=== PATIENT | female | born 1925 | race Caucasian/White ===

== ENCOUNTER 2017-02-07 22:30 | Emergency (ER) | payer MEDICARE, OTHER ==
[2017-02-07] MEDS ORDERED: Morphine INJ* 2 MG/ML 1 ML SYRINGE IV ONE (22:34)
--- NOTE | 2017-02-07 22:49 | ED ---
I, Russel,Aden, scribed for Jaziel Youssef MD on 02/07/17 at 2242 . 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 Fall was unwitnessed, and pt pressed life alert before being brought in by ambulance. Pt is reported to have been hypertensive at time of initial encounter. Fentanyl IM by EMS PENSION EXAMINER. She is noted loudly moaning at time of ED arrival, and poorly tolerated being moved to stretcher in room. PMHx includes DM and HTN. PSHx includes bilat knee and hip replacement. - History of Current Complaint Stated Complaint: LT HIP/LEG PAIN Time Seen by Provider: 02/07/17 22:31 Hx Obtained From: Patient, Medical Records Mechanism Of Injury: Fall From A Standing Position Onset of Pain: Immediate Timing: Constant Location: Is Discrete @ - left hip Character Of Pain: Sharp Associated Signs And Symptoms: Positive: Negative Aggravating Factor(s): Standing, Ambulation, Movement Alleviating Factor(s): Rest Able to Bear Weight: No - Allergies/Home Medications Allergies/Adverse Reactions: Allergies Allergy/AdvReac Type Severity Reaction Status Date / Time Dipyridamole [From Aggrenox] Allergy Unknown Verified 04/27/14 06:31 Reaction Details Hydrocodone Allergy Abdominal Verified 04/27/14 06:31 Pain Lactose Intolerance (GI) Allergy Unknown Verified 04/27/14 06:31 Reaction Details Penicillins [PCN] Allergy Unknown Verified 04/27/14 06:31 Reaction Details Phenylbutazone Allergy Unknown Verified 04/27/14 06:31 [From Butazolidin] Reaction Details Sulfa Antibiotics Allergy GI Upset Verified 04/27/14 06:31 ENVIRONMENT Allergy Unknown Uncoded 04/27/14 06:31 Reaction Details PMH/Surg Hx/FS Hx/Imm Hx Endocrine/Hematology History: Reports: Hx Diabetes - TYPE 2 Denies: Hx Anticoagulant Therapy, Hx Blood Disorders, Hx Bone Marrow Disease , Hx Systemic Lupus Erythematosus, Hx Sickle Cell Disease, Hx Thyroid Disease, Hx Anemia, Hx Unexplained Bleeding Cardiovascular History: Reports: Hx Coronary Artery Disease - CHOLESTEROL CONTROL WITH MEDS, Hx Hypertension - ON MEDS, Hx Valvular Heart Disease Denies: Hx Angina, Hx Cardiomegaly, Hx Congestive Heart Failure, Hx Pacemaker /ICD, Hx Peripheral Vascular Disease, Hx Rheumatic Fever, Other Cardiovascular Problems/Disorders Respiratory History: Reports: Hx Seasonal Allergies Denies: Hx Asthma, Hx Pulmonary Edema, Hx Pulmonary Embolism GI History: Reports: Hx Gastroesophageal Reflux Disease Denies: Hx Cirrhosis, Hx Crohn's Disease, Hx Diverticulosis, Hx Gall Bladder Disease, Hx Gastrointestinal Bleed, Hx Hiatal Hernia, Hx Irritable Bowel, Hx Jaundice, Hx Obstructive Bowel, Hx Ileostomy, Hx Ulcer, Other GI Disorders History: Denies: Hx Acute Renal Failure, Hx Benign Prostatic Hyperplasia, Hx Chronic Renal Failure, Hx Dialysis, Hx Kidney Infection, Hx Kidney Stones Musculoskeletal History: Reports: Hx Arthritis, Other Musculoskeletal History Denies: Hx Bursitis Sensory History: Reports: Hx Contacts or Glasses, Hx Glaucoma Denies: Hx Cataracts, Hx Eye Injury, Hx Eye Prosthesis, Hx Legally Blind, Hx Macular Degeneration, Hx Vision Problem, Hx Deafness, Hx Hearing Aid, Hx Hearing Problem, Other Sensory Impairments Opthamlomology History: Reports: Hx Contacts or Glasses, Hx Glaucoma Denies: Hx Cataracts, Hx Eye Injury, Hx Eye Prosthesis, Hx Legally Blind, Hx Macular Degeneration, Hx Vision Problem, Other Sensory Impairments Neurological History: Reports: Hx Transient Ischemic Attacks (TIA) Denies: Hx Dementia, Hx Developmental Delay, Hx Headaches, Hx Migraine, Hx Nerve Disease, Hx Seizures, Hx Spinal Cord Injury, Other Neuro Impairments/ Disorders Psychiatric History: Denies: Hx Anxiety, Hx Attention Deficit Hyperactivity Disorder, Hx Eating Disorder, Hx Depression, Hx Panic Disorder, Hx Post Traumatic Stress Disorder, Hx Inpatient Treatment, Hx Community Mental Health Tx, Hx Schizophrenia, Hx Bipolar Disorder, Hx Suicide Attempt, Hx of Violent Episodes Against Others, Hx Substance Abuse, Other Psychiatric Issues/Disorders - Cancer History Hx Chemotherapy: No Hx Radiation Therapy: No Hx Palliative Cancer Treatment: No - Surgical History Surgery Procedure, Year, and Place: TONSILLECTOMY, AGE 6. APPENDECTOMY, 1952. BILATERAL KNEE REPLACEMENT, 1999, 2002. BILATERAL HIP REPLACEMENT, 2010. CARPAL TUNNEL RELEASE LEFT WRIST, Hx Anesthesia Reactions: No Infectious Disease History: Denies: Hx Clostridium Difficile, Hx Hepatitis - Family History Known Family History: Negative: Other - breast CA - Social History Lives: Alone Alcohol Use: Rare Hx Substance Use: No Substance Use Type: Reports: None Hx Tobacco Use: No Smoking Status (MU): Never Smoked Tobacco Have You Smoked in the Last Year: No Review of Systems Negative: Fever Positive: Other - left hip pain s/p fall All Other Systems Reviewed And Are Negative: Yes Physical Exam Triage Information Reviewed: Yes Vital Signs Reviewed: Yes Appearance: Positive: Well-Appearing, Pain Distress - moderate pain Skin: Positive: Warm Head/Face: Positive: Normal Head/Face Inspection Eyes: Positive: LEIDY ENT: Positive: Hearing grossly normal Neck: Positive: Supple Respiratory/Lung Sounds: Positive: Clear to Auscultation, Breath Sounds Present Cardiovascular: Positive: RRR Abdomen Description: Positive: Nontender, Soft Bowel Sounds: Positive: Present Musculoskeletal: Positive: Other - obvious lt hip/femur deformity, pulses 2+ distally Neurological: Positive: Alert, Oriented to Person Place, Time, NV Bundle Intact Distally Psychiatric: Positive: Affect/Mood Appropriate Diagnostics - Laboratory Result Diagrams: 02/07/17 22:50 02/07/17 22:50 Lab Statement: Any lab studies that have been ordered have been reviewed, and results considered in the medical decision making process. - Radiology CXR Xray Interpretation: No Acute Changes Radiology Interpretation Completed By: ED Physician Left femur Xray Interpretation: Positive (See Comments) - Positive femur fracture Radiology Interpretation Completed By: ED Physician Left hip Xray Interpretation: Positive (See Comments) - Positive femure fracture Radiology Interpretation Completed By: ED Physician - EKG 2349 Cardiac Rate: NL - 67 bpm EKG Rhythm: Sinus Rhythm Re-Evaluation - Re-Evaluation First Eval Re-Evaluation Time: 23:31 Comment: MD in room to update pt on X-ray imaging results. Plan of care involving ortho consult and admission is discussed with pt and family member present at bedside. Lower Extremity Course/Dx - Course Course Of Treatment: Consultation: Dr. Velazquez (Hospitalist) at 2234 PM -- made aware of possible hip fracture. Dr. Pena (Ortho) at 2333 PM -- recommends transfer. Dr. Zuluaga ([facility], Accepting physician) at 2341 PM. 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 Pt lives alone, and pressed life alert button before EMS transfer. She is seen moaning loudly and tolerating transfer from stretcher to ED bed poorly. X-ray indicates marked paraprosthetic fracture and mid shaft femur fracture of LLE. CXR is normal. Dr. Delarosa, corrections lieutenant ortho, who recommends transfer. Transfer center was called and pt is accepted for transfer with Dr. Zuluaga as accepting physician. - Diagnoses Provider Diagnoses: mid shaft femur fracture, left, paraprosthetic fracture, left femure, Left hip pain - Physician Notifications Discussed Care Of Patient With: Stone Velazquez Time Discussed With Above Provider: 22:34 Instructed by Provider To: Transfer - to [facility] Discharge - Discharge Plan Condition: Fair Disposition: TRANS HIGHER LVL OF CARE FAC Referrals: Rancho Holt MD [Primary Care Provider] - The documentation as recorded by the Russel deleon Soohyun accurately reflects the service I personally performed and the decisions made by me, Jaziel Youssef MD.
[2017-02-07 23:01] LABS: Hematocrit 39 % (35-47); Hemoglobin 12.7 g/dl (12.0-16.0); Mean Corpuscular HGB Conc 33 g/dl (31-36); Mean Corpuscular Hemoglobin 30 pg (27-31); Mean Corpuscular Volume 91 fL (80-97); Mean Platelet Volume 9 um3 (7.4-10.4); Red Blood Count 4.27 10^6/ul (4.0-5.4); Red Cell Distribution Width 15 % (10.5-15); White Blood Count 5.4 10^3/ul (3.5-10.8)
[2017-02-07 23:13] LABS: Albumin 3.9 g/dL (3.2-5.2); BUN/Creatinine Ratio 20.7 (8-20); C Reactive Protein 6.25 mg/L (< 5.00); Calcium 8.9 mg/dL (8.6-10.3); EGFR African American 84.4 (>60); EGFR Non-African American 65.6 (>60); Globulin 2.7 g/dL (2-4); Potassium 4.1 mmol/L (3.5-5.0); Total Bilirubin 0.5 mg/dL (0.2-1.0); Total Protein 6.6 g/dL (6.4-8.9)
[2017-02-07] MEDS ORDERED: Morphine INJ* 4 MG/ML 1 ML SYRINGE IV ONE (23:27)
[2017-02-08 00:44] VITALS: BP 154/57
--- NOTE | 2017-02-08 08:59 | RAD ---
Indication: Left hip pain. 2 views of left hip and an AP view of the pelvis demonstrates no fracture. Left hip replacement in satisfactory position. Pelvic ring is intact. There is a fracture of the proximal femur just distal to the prosthesis on the left. Lateral angulation is noted. IMPRESSION: Left hip replacement in satisfactory position. Spiral fracture of the proximal diaphysis of the left femur with lateral angulation.
--- NOTE | 2017-02-08 09:03 | RAD ---
Indication: Fall, preop chest. Comparison is made with previous exam dated September 15, 2006 January 26, 2015. Single view of the chest demonstrates no mediastinal shift. Mild cardiomegaly is noted. No pneumothorax is noted. Interstitial prominence which may represent mild vascular congestion is noted. Question of a nodule in the left midlung Field is noted. This was present on prior exam. This likely represents calcified granuloma. IMPRESSION: Evidence of mild vascular congestion. The patient has had aortic stent presumably from aortic valve replacement.
--- NOTE | 2017-02-08 09:06 | RAD ---
Indication: Fall. Left thigh injury. 6 views of the left femur are reviewed. There is a spiral fracture of the midshaft of the left femur. There is lateral angulation noted. Butterfly fragment is noted. Periprosthetic fracture is noted surrounding the femoral component of the knee replacement. IMPRESSION: Comminuted spiral fracture of the midshaft of the left femur with lateral displacement and angulation. Periprosthetic fracture around the femoral component of the knee prosthesis is also present.
== END 2017-02-08 00:44 | disposition short-term general hospital (02) ==
LOC: ED 22:30
DX: S72.302A Unspecified fracture of shaft of left femur, initial encounter for closed fracture (principal); M25.552 Pain in left hip; M97.02XA Periprosthetic fracture around internal prosthetic left hip joint, initial encounter; W19.XXXA Unspecified fall, initial encounter; Y93.9 Activity, unspecified; Y92.89 Other specified places as the place of occurrence of the external cause
CPT/HCPCS: 36415; 71010; 80053; 83605; 85025; 85610; 86140; 86850; 86900; 86901; 93005; 99285; J2270